=== PATIENT | female | born 1940 ===

== ENCOUNTER 2018-10-15 06:45 | Emergency (ER) | payer MEDICARE, MEDICAID ==
[2018-10-15 06:45] VITALS: BMI 25.6
[2018-10-15 07:08] VITALS: RESP 19
[2018-10-15] MEDS ORDERED: Alum-Mag Hydrox-Simethicone Susp (30 mL) PO STA (07:59)
[2018-10-15] MEDS ORDERED: Sodium Chloride 0.9% 1,000 ML IV STA (08:00)
[2018-10-15] MEDS ORDERED: Alum-Mag Hydrox-Simethicone Susp (30 mL) ONE (08:23)
--- NOTE | 2018-10-15 08:25 | ED PDOC ---
HPI: General Adult Time Seen by Provider: 10/15/18 07:49 Chief Complaint (Nursing): Abdominal Pain Chief Complaint (Provider): Chest Pain History Per: Patient, Family (daughter) History/Exam Limitations: no limitations Onset/Duration Of Symptoms: Days (x 3 weeks) Current Symptoms Are (Timing): Still Present Recently: Treated By A Physician Additional Complaint(s): 78 year old female with a history of Non-Hodgkin's lymphoma and diabetes presen ts to the ED with a burning sensation from her stomach to her throat for the last month. Patient received chemotherapy on September 22 and has since felt the pain. Also reports a mild headache as well as "aching bones". Daughter provides history and reports that the patient has been unable to eat regularly due to pain. She no longer takes medications for her diabetes since chemotherapy began. Patient takes Protonix, Zofran and Carafate without much relief. Denies vomiting, diarrhea and constipation. PMD: Dr. Randell Zapien Oncologist: Dr. Frye Past Medical History Reviewed: Historical Data, Nursing Documentation, Vital Signs Vital Signs: Last Vital Signs Temp 97.6 F 10/15/18 07:07 Pulse 94 H 10/15/18 07:07 Resp 19 10/15/18 07:07 BP 152/71 H 10/15/18 07:07 Pulse Ox 95 10/15/18 07:07 - Medical History PMH: Diabetes, Gastritis, Malignancy (Non-Hodgkin's lymphoma), Seizures (as a child) Denies: Chronic Kidney Disease - Surgical History Surgical History: Endoscopy, Tonsillectomy - Family History Family History: States: Unknown Family Hx - Home Medications Home Medications: Ambulatory Orders Medication Instructions Recorded Pantoprazole [Protonix] 40 mg PO DAILY 08/22/17 Sucralfate [Carafate] 1 gm PO BID 08/22/17 metFORMIN [glucOPHAGE] 500 mg PO DAILY 08/22/17 Aluminum Hydroxide/Magnesium H 30 ml PO TID #1000 ml 10/15/18 [Maalox 30 ml] Famotidine [Pepcid] 20 mg PO DAILY #14 tab 10/15/18 Lidocaine 2% Viscous 15 ml MM BID #100 bottle 10/15/18 - Allergies Allergies/Adverse Reactions: Allergies Allergy/AdvReac Type Severity Reaction Status Date / Time No Known Allergies Allergy Verified 09/03/18 08:09 Review of Systems ROS Statement: Except As Marked, All Systems Reviewed And Found Negative Constitutional: Negative for: Fever Respiratory: Negative for: Shortness of Breath Gastrointestinal: Positive for: Abdominal Pain (burning sensation from stomach up to throat). Negative for: Nausea, Vomiting, Diarrhea Neurological: Positive for: Headache (mild) Physical Exam - Reviewed Nursing Documentation Reviewed: Yes Vital Signs Reviewed: Yes - Physical Exam Appears: Positive for: Non-toxic, No Acute Distress Head Exam: Positive for: ATRAUMATIC, NORMAL INSPECTION, NORMOCEPHALIC Skin: Positive for: Normal Color, Warm, Dry. Negative for: Rash Eye Exam: Positive for: EOMI, Normal appearance, PERRL Neck: Positive for: Normal, Painless ROM, Supple Cardiovascular/Chest: Positive for: Regular Rate, Rhythm. Negative for: Murmur Respiratory: Positive for: Normal Breath Sounds. Negative for: Respiratory Distress Gastrointestinal/Abdominal: Positive for: Normal Exam, Soft. Negative for: Tenderness, Guarding, Rebound Extremity: Positive for: Normal ROM (upper and lower extremities). Negative for: Deformity, Swelling Neurologic/Psych: Positive for: Alert, Oriented (x 3). Negative for: Motor/Sens ory Deficits - Laboratory Results Result Diagrams: 10/15/18 08:10 10/15/18 08:10 - ECG O2 Sat by Pulse Oximetry: 95 (RA) Pulse Ox Interpretation: Normal - Progress Re-evaluation Time: 13:00 Condition: Re-examined, Improved Medical Decision Making Medical Decision Makin:59 Impression: burning sensation in chest Differential diagnoses include but are not limited to: GERD, less likely ACS; neuropathy, paresthesia Initial Plan: --CMP --CBC --EKG --Troponin --Urine dip --Lidocaine 2% Viscous 15 ml PO --Maalox 30 ml PO --NS IV --Pepcid 20 mg IVP Scribe Attestation: Documented by Yuli Childers acting as a scribe for Elsi Funes MD Provider Scribe Attestation: All medical record entries made by the Scribe were at my direction and personally dictated by me. I have reviewed the chart and agree that the record a ccurately reflects my personal performance of the history, physical exam, medical decision making, and the department course for this patient. I have also personally directed, reviewed, and agree with the discharge instructions and disposition. Disposition - Clinical Impression Clinical Impression: Abdominal pain, Chest pain - Patient ED Disposition Is Patient to be Admitted: No Doctor Will See Patient In The: Office Counseled Patient/Family Regarding: Studies Performed, Diagnosis, Need For Followup - Disposition Referrals: Randell Zapien MD [Staff Provider] - Disposition: Routine/Home Disposition Time: 13:28 Condition: GOOD Additional Instructions: BARRY ZARATE, thank you for letting us take care of you today. Your provider was Elsi Funes MD and you were treated for ABD PAIN. The emergency medical care you received today was directed at your acute symptoms. If you were prescribed any medication, please fill it and take as directed. It may take several days for your symptoms to resolve. Return to the Emergency Department if your symptoms worsen, do not improve, or if you have any other problems. Please contact your doctor or call one of the physicians/clinics you have been referred to that are listed on the Patient Visit Information form that is included in your discharge packet. Bring any paperwork you were given at discharge with you along with any medications you are taking to your follow up visit. Our treatment cannot replace ongoing medical care by a primary care provider outside of the emergency department. Thank you for allowing the [facility] team to be part of your care today. If you had an X-Ray or CT scan: A Radiologist will review the ED reading if any change in treatment is needed we will contact you. If you had a blood, urine, or wound culture: It will take several days for the results, if any change in treatment is needed we will contact you. If you had an STI test: It will take 48 hours for the results. Please call after 1 week if you have not heard back. Prescriptions: Aluminum Hydroxide/Magnesium H [Maalox 30 ml] 30 ml PO TID #1000 ml Famotidine [Pepcid] 20 mg PO DAILY #14 tab Lidocaine 2% Viscous 15 ml MM BID #100 bottle Instructions: Chest Pain Print Language: MOHAWK
[2018-10-15 08:33] LABS: ALB/GLOB RATIO 1.2 (1.0-2.1); ALT/SGPT 34 U/L (9-52); AST/SGOT 28 U/L (14-36); BLOOD UREA NITROGEN 19 mg/dl (7-17); CALCIUM 9.2 mg/dL (8.4-10.2); GFR NON-AFRICAN AMERICAN > 60
[2018-10-15 08:36] LABS: BASO % 0.5 % (0.0-2.0); EOS # 0.1 K/uL (0.0-0.7); EOS % 1.8 % (0.0-4.0); HEMOGLOBIN 13.9 g/dL (12.0-16.0); LYMPH # 0.5 K/uL (1.0-4.3); LYMPH % 8.5 % (20.0-40.0); MEAN CELL VOLUME 91.5 fl (81.0-99.0); MEAN CORPUSCULAR HEMOGLOBIN 30.3 pg (27.0-31.0); MEAN CORPUSCULAR HGB CONC 33.1 g/dL (33.0-37.0); MEAN PLATELET VOLUME 8.8 fl (7.2-11.7); MONO # 0.7 K/uL (0.0-0.8); MONO % 10.8 % (0.0-10.0); NEUT % 78.4 % (50.0-75.0); PLATELET COUNT 219 K/uL (130-400); RED CELL DISTRIBUTION WIDTH 13.2 % (11.5-14.5); WHITE BLOOD COUNT 6.4 K/uL (4.8-10.8)
[2018-10-15] MEDS ORDERED: Oxycodone/Acetaminophen 5/325 mg Tab PO STA (10:27)
[2018-10-15 12:45] LABS: BANDS 2 % (0-2); LYMPHOCYTE 8 % (20-50); METAMYELOCYTE 1 % (0-0); MONOCYTE 9 % (0-10); NEUTROPHIL 80 % (42-75); TOTAL CELLS COUNTED 100
[2018-10-15 12:46] LABS: PLATELET ESTIMATE NORMAL (NORMAL)
[2018-10-15 13:42] VITALS: BP 128/76; PULSE 79; O2SAT 98
[2018-10-15 13:44] VITALS: TEMP 97.8
--- NOTE | 2018-10-15 20:51 | CARD ---
APPROVED REPORT Date of service: 10/15/2018 EKG Measurement Heart [id number] <Conclusion> Normal sinus rhythm Possible Left atrial enlargement Borderline ECG
== END 2018-10-15 13:45 | disposition home or self-care (01) ==
LOC: H.ER 06:45
DX: R10.9 Unspecified abdominal pain (principal); R07.9 Chest pain, unspecified; E11.9 Type 2 diabetes mellitus without complications; Z79.84 Long term (current) use of oral hypoglycemic drugs; Z85.72 Personal history of non-Hodgkin lymphomas
CPT/HCPCS: 80053; 82948; 84484; 85025; 93005; 96374; 99283; J7030

== ENCOUNTER 2018-12-04 10:40 | Day surgery (SDC) | payer MEDICARE, MEDICAID ==
[2018-12-04 11:38] VITALS: BMI 17.4
[2018-12-04 11:40] VITALS: RESP 18
[2018-12-04] MEDS ORDERED: Lactated Ringer's 1,000 ML IV ONE (12:00)
[2018-12-04] MEDS ORDERED: Lidocaine 2% Inj (20ml) ONE (14:12)
[2018-12-04] MEDS ORDERED: Bupivacaine 0.5% Inj(30mL) ONE (14:12)
[2018-12-04] MEDS ORDERED: Iohexol 300 10 ML ONE (14:25)
[2018-12-04] MEDS ORDERED: Iohexol 300 100 ML IJ ONE (14:26)
[2018-12-04] MEDS ORDERED: Etomidate 20 mg/10ml Inj IV ONE (14:31)
[2018-12-04] MEDS ORDERED: Propofol 10 mg/ml Inj (20 ML) ONE (14:31)
[2018-12-04] MEDS ORDERED: Lactated Ringer's 1,000 ML IV SCH (15:30)
--- NOTE | 2018-12-04 15:42 | PCM.SURG1 ---
Surgeon's Initial Post Op Note - Surgeon's Notes Surgeon: Dr. Vuong Adjunct Professor: PGY2 Type of Anesthesia: General LMA Pre-Operative Diagnosis: Lymphoma Operative Findings: Right subclavian accessed w/ good blood return. Confirmed placement w/ C-Arm. for details see op note Post-Operative Diagnosis: as above Operation Performed: Right Subclavian Port-A-Cath placement Specimen/Specimens Removed: none Estimated Blood Loss: EBL {In ML}: 5 Drains Used: No Drains Post-Op Condition: Good Date of Surgery/Procedure: 12/04/18 Time of Surgery/Procedure: 15:38 (Dictation #: [id number])
--- NOTE | 2018-12-04 16:04 | RAD ---
Date of service: 12/04/2018 PROCEDURE: CHEST RADIOGRAPH, 1 VIEW HISTORY: s/p port-a-cath placement COMPARISON: 03/09/2018. FINDINGS: LUNGS: Clear. PLEURA: No pneumothorax or pleural fluid seen. CARDIOVASCULAR: No aortic atherosclerotic calcification present. No radiographic findings to suggest acute or significant cardiovascular disease. OSSEOUS STRUCTURES: No significant abnormalities. VISUALIZED UPPER ABDOMEN: Normal. OTHER FINDINGS: Venous access catheter in satisfactory position. IMPRESSION: Satisfactory position of recently placed venous access catheter. The tip is in the SVC. No pneumothorax.
[2018-12-04 17:47] VITALS: BP 130/69; PULSE 69; TEMP 97.7; O2SAT 100
--- NOTE | 2018-12-05 12:42 | OP ---
PROCEDURE DATE: 12/04/2018 SURGEON: Virginia Vuong MD TUNNEL HEADING INSPECTOR: Terell Howe DO, PGY-2 PREOPERATIVE DIAGNOSIS: Lymphoma. POSTOPERATIVE DIAGNOSIS: Lymphoma. PROCEDURES PERFORMED: 1. Right subclavian Port-A-Cath placement. 2. Confirmed by C-arm. TYPE OF ANESTHESIA: General LMA. ANESTHESIOLOGIST: Sadi Keller MD ESTIMATED BLOOD LOSS: 5 mL. INDICATIONS: This is a 78-year-old female, past medical history is significant for lymphoma. The patient has been undergoing two weeks of chemotherapy and has elected to have a chemo Port-A-Cath placement. The risks and benefits were explained to the patient and the patient agreed to the procedure set forth. DESCRIPTION OF PROCEDURE: The patient was brought into the operating room, placed in supine position with right arm tucked and right shoulder exposed. Anesthesia was induced and LMA was placed confirming good placement with good end-tidal CO2. At this time, a time-out was taken confirming correct patient, procedure, location, and all equipment. The patient was then turned to the left, exposing the right clavicle. The patient was prepped and draped in the usual sterile fashion using chlorhexidine. A 2% lidocaine with epinephrine was used to inject the site locally. With the patient in Trendelenburg position, utilizing the introducing needle, the right subclavian vein was appropriately cannulated with good flush and appropriate return. A guidewire was passed without difficulty and the needle was removed. Fluoroscopy confirmed satisfactory position of the guidewire in the right atrium. At this time, our attention was turned towards the fascia and skin. The skin, subcutaneous tissue, fascia, and the pec major muscle beneath was infiltrated with 2% lidocaine with epinephrine. An incision transverse using a #15 blade was used measuring approximately 6 cm. A subcutaneous pocket was created and appropriate hemostasis was achieved in this pocket using electrocautery. At this time, attention was turned back towards the guidewire. A #11 blade was used to incise the skin and a dilator and sheath was passed over the guidewire. The guidewire and dilator were removed and the sheath was carefully withdrawn. Fluoroscopy again confirmed satisfactory position. With a catheter under direct fluoroscopy was retracted into the superior vena cava. The catheter had been pre-flushed with dilute heparin solution, 100 units per mL. The port has also been pre-flushed with heparinized saline. The catheter was appropriately placed, once again confirmed with fluoroscopy and C-arm at approximate level of 15 cm. The locking cap had been placed on the catheter. The port was connected to the catheter and the locking cap was secured. The port was again flushed with heparinized saline and placed within the subcutaneous pocket. Fluoroscopy again confirmed satisfactory position. A hard copy of fluoroscopy was obtained. The catheter port was secured with 2-0 Prolene suture. The site was once again irrigated and appropriate hemostasis was achieved. The subcutaneous tissue was approximated. Prior to skin closure, once again confirmed appropriate withdrawal and flushing of the Port-A-Cath over skin. The skin was then closed and approximated with 4-0 Monocryl in a running subcuticular fashion. The site was then dressed with Steri-Strips and a sterile dressing of 4 x 4 and Tegaderm was placed on top. The patient was taken to the post-anesthesia care unit in stable condition. All counts were correct at the end of the case. Dr. Vuong was present and participated in all aspects of the case. While the patient in PACU, chest x-ray was obtained and confirmed good placement and no pneumothorax. Terell Howe DO Virginia Vuong MD
--- NOTE | 2018-12-05 15:46 | RAD ---
Date of service: 12/04/2018 PROCEDURE: Intraoperative fluoroscopy HISTORY: PORT COMPARISON: Not available TECHNIQUE: Intraoperative fluoroscopy was provided for life port insertion. Total time of fluoroscopy was 27.1 sec. Cumulative dose was 2.77 mGy. FINDINGS: A single fluoroscopic spot film is submitted. IMPRESSION: Fluoroscopy provided.
== END 2018-12-04 18:20 | disposition home or self-care (01) ==
LOC: H.OPSURG 10:40
PROVIDERS: ATTEND Specialist
DX: C82.90 Follicular lymphoma, unspecified, unspecified site (principal); E11.9 Type 2 diabetes mellitus without complications; K29.70 Gastritis, unspecified, without bleeding; Z45.2 Encounter for adjustment and management of vascular access device
CPT/HCPCS: 36561; 71045; 82948; C1751; J0690; J1644; J1885; J2001; J2704; J3010; J7040; J7120

== ENCOUNTER 2019-02-25 07:54 | Emergency (ER) | payer MEDICARE, MEDICAID ==
[2019-02-25 07:57] VITALS: BMI 23.9
[2019-02-25] MEDS ORDERED: Sodium Chloride 0.9% 1,000 ML IV STA (08:28)
--- NOTE | 2019-02-25 08:37 | ED PDOC ---
HPI: Abdomen Time Seen by Provider: 02/25/19 08:03 Chief Complaint (Nursing): GI Problem Chief Complaint (Provider): Abdominal pain History Per: Patient, Radiation Control Technician (Ricarda Puckett) History/Exam Limitations: no limitations Additional Complaint(s): Pt reports abdominal pain X 3 days, associated with nausea, constipation and decreased appetite. Symptoms started 4 days after last chemo session, has had similar sxs after chemo but not to this degree. Receives chemo q7 weeks. Denies fever, CP, SOB, symptoms. Past Medical History Reviewed: Nursing Documentation, Vital Signs Vital Signs: Last Vital Signs Temp 98.5 F 02/25/19 07:56 Pulse 103 H 02/25/19 07:56 Resp 17 02/25/19 07:56 BP 135/91 H 02/25/19 07:56 Pulse Ox 96 02/25/19 07:56 Primary Care Provider: Randell Zapien - Medical History PMH: Diabetes, Gastritis, Malignancy (Non-Hodgkin's lymphoma), Seizures (as a child) Denies: Chronic Kidney Disease - Surgical History Surgical History: Endoscopy, Tonsillectomy Other surgeries: Hysterectomy - Family History Family History: States: Unknown Family Hx - Living Arrangements Living Arrangements: With Friends/Others - Social History Current smoker - smoking cessation education provided: No Alcohol: None - Home Medications Home Medications: Ambulatory Orders Medication Instructions Recorded Pantoprazole [Protonix] 40 mg PO DAILY 08/22/17 metFORMIN [glucOPHAGE] 500 mg PO DAILY 08/22/17 Famotidine [Pepcid] 20 mg PO DAILY PRN 12/04/18 Gabapentin 300 mg PO TID PRN 12/04/18 Acetaminophen with Codeine 1 tab PO Q6H PRN #10 tab 02/25/19 [Tylenol with Codeine No. 3 300 mg-30 mg] Ondansetron ODT [Zofran ODT] 4 mg PO Q8H PRN #20 odt 02/25/19 - Allergies Allergies/Adverse Reactions: Allergies Allergy/AdvReac Type Severity Reaction Status Date / Time No Known Allergies Allergy Verified 02/25/19 08:03 Review of Systems Constitutional: Negative for: Fever, Chills Cardiovascular: Negative for: Chest Pain, Palpitations Respiratory: Negative for: Cough, Shortness of Breath Gastrointestinal: Positive for: Nausea, Abdominal Pain, Constipation. Negative for: Vomiting, Diarrhea Genitourinary Female: Negative for: Dysuria, Hematuria Skin: Negative for: Rash, Lesions Neurological: Negative for: Headache, Dizziness Physical Exam - Reviewed Nursing Documentation Reviewed: Yes Vital Signs Reviewed: Yes - Physical Exam Appears: Positive for: Well, No Acute Distress Head Exam: Positive for: ATRAUMATIC, NORMAL INSPECTION Skin: Positive for: Normal Color, Warm, Dry Eye Exam: Positive for: Normal appearance, EOMI, PERRL Cardiovascular/Chest: Positive for: Regular Rate, Rhythm Respiratory: Positive for: Normal Breath Sounds Gastrointestinal/Abdominal: Positive for: Bowel Sounds, Soft, Tenderness (Epigastric/RLQ). Negative for: Mass, Distended, Guarding, Rebound Back: Positive for: Normal Inspection. Negative for: L CVA Tenderness, R CVA Tenderness Extremity: Positive for: Normal ROM Neurological/Psych: Positive for: Awake, Alert, Oriented - Laboratory Results Result Diagrams: 02/25/19 08:40 02/25/19 08:40 - ECG O2 Sat by Pulse Oximetry: 96 Medical Decision Making Medical Decision Makin yo female with nausea, abdominal pain and constipation. - labs - EKG - CT abd/pelvis - Morphine - Zofran - IVF Disposition - Clinical Impression Clinical Impression: Lung nodule, Cholelithiasis - Disposition Referrals: Randell Zapien MD [Staff Provider] - Disposition: Routine/Home Disposition Time: 11:02 Condition: IMPROVED Prescriptions: Acetaminophen with Codeine [Tylenol with Codeine No. 3 300 mg-30 mg] 1 tab PO Q6H PRN #10 tab PRN Reason: Pain, Severe (8-10) Ondansetron ODT [Zofran ODT] 4 mg PO Q8H PRN #20 odt PRN Reason: Nausea/Vomiting Instructions: Gallstones, Opioids for Short-Term Treatment of Pain, Pulmonary Nodule Forms: [employer] (Divehi) Print Language: IRISH
[2019-02-25 08:51] LABS: BASO % 0.6 % (0.0-2.0); EOS # 0.1 K/uL (0.0-0.7); EOS % 4.1 % (0.0-4.0); LYMPH # 0.5 K/uL (1.0-4.3); LYMPH % 20.6 % (20.0-40.0); MEAN CELL VOLUME 89.6 fl (81.0-99.0); MEAN CORPUSCULAR HEMOGLOBIN 30.4 pg (27.0-31.0); MEAN CORPUSCULAR HGB CONC 33.9 g/dL (33.0-37.0); MEAN PLATELET VOLUME 9.1 fl (7.2-11.7); MONO # 0.1 K/uL (0.0-0.8); MONO % 3.9 % (0.0-10.0); NEUT # 1.6 K/uL (1.8-7.0); NEUT % 70.8 % (50.0-75.0); RBC 4.29 Mil/uL (3.80-5.20); RED CELL DISTRIBUTION WIDTH 12.9 % (11.5-14.5); WHITE BLOOD COUNT 2.2 K/uL (4.8-10.8)
[2019-02-25 08:59] LABS: ALB/GLOB RATIO 1.4 (1.0-2.1); ALBUMIN 4.3 g/dL (3.5-5.0); ALT/SGPT 22 U/L (9-52); AST/SGOT 30 U/L (14-36); BLOOD UREA NITROGEN 10 mg/dl (7-17); CALCIUM 9.7 mg/dL (8.4-10.2); GFR NON-AFRICAN AMERICAN > 60; LIPASE 73 U/L (23-300)
--- NOTE | 2019-02-25 09:10 | CARD ---
APPROVED REPORT Date of service: 02/25/2019 EKG Measurement Heart [id number] <Conclusion> Normal sinus rhythm Possible Left atrial enlargement Borderline ECG
[2019-02-25 09:16] LABS: PROTHROMBIN TIME 11.8 Seconds (9.8-13.1)
[2019-02-25 09:19] LABS: PARTIAL THROMBOPLASTIN TIME 20.6 Seconds (25.6-37.1)
[2019-02-25 09:36] LABS: URINE BILIRUBIN NEGATIVE (NEGATIVE); URINE BLOOD NEGATIVE (NEGATIVE); URINE CLARITY CLEAR (Clear); URINE COLOR STRAW (YELLOW); URINE GLUCOSE (UA) NEG (NEGATIVE); URINE LEUKOCYTE ESTERASE NEG Leu/uL (Negative); URINE PROTEIN NEGATIVE (NEGATIVE); URINE UROBILINOGEN 0.2-1.0 mg/dL (0.2-1.0)
[2019-02-25] MEDS ORDERED: Sodium Chloride 0.9% 50 ML IV ONE (10:00)
[2019-02-25] MEDS ORDERED: Iohexol 300 100 ML IJ ONE (10:00)
--- NOTE | 2019-02-25 10:50 | CT ---
Date of service: 02/25/2019 PROCEDURE: CT Abdomen and Pelvis with contrast HISTORY: Abd pain, nausea, constipation COMPARISON: None. TECHNIQUE: Following the intravenous administration of iodinated contrast material, a CT examination of the abdomen and pelvis was performed from the domes of the diaphragms to the symphysis pubis with reformatted datasets provided in axial, sagittal and coronal planes. Oral contrast was not administered as per referring physician request. Contrast dose: Omnipaque 300, 95 cc Radiation dose: Total exam DLP = 371.59 mGy-cm. This CT exam was performed using one or more of the following dose reduction techniques: Automated exposure control, adjustment of the mA and/or kV according to patient size, and/or use of iterative reconstruction technique. FINDINGS: LOWER THORAX: Faint subpleural nodule question of the right lower lobe base 6.5 mm greatest dimension. No pleural or pericardial effusion or infiltrate. LIVER: Diminished hepatic attenuation is appreciate diffusely, compatible with hepatic steatosis. No mass or intrahepatic biliary dilatation identified. GALLBLADDER AND BILE DUCTS: Cholelithiasis and a sludge or medical calcium layering the dependent portion with the gallbladder otherwise unremarkable appearing. PANCREAS: Unremarkable. No gross lesion or ductal dilatation. SPLEEN: Unremarkable. ADRENALS: Unremarkable. No mass. KIDNEYS AND URETERS: Unremarkable. No hydronephrosis. No solid mass. VASCULATURE: Nonaneurysmal abdominal aortic calcific atherosclerotic changes are identified. BOWEL: Stomach is collapsed and is poorly evaluated as result. There is a [id number] amount of retained fecal material at the ascending colon with minimal amount otherwise throughout the remainder. Gas mildly distending various large-bowel segments. No small or large bowel obstruction. No gross mural thickening. APPENDIX: Normal appendix. PERITONEUM: Unremarkable. No free fluid. No free air. LYMPH NODES: Unremarkable. No enlarged lymph nodes. BLADDER: Unremarkable. REPRODUCTIVE: 1.6 cm left adnexal cyst. Prior hysterectomy evident. BONES: Limited dextroscoliotic thoracolumbar spinal deformity identified. OTHER FINDINGS: None. IMPRESSION: 1. No bowel obstruction, measure edema, ascites or free intrarenal gas. The stomach is collapsed. Limited retained fecal material is seen at the ascending colon with remainder of the colon otherwise partially distended with gas. 2. Cholelithiasis within under once unremarkable appearing gallbladder. 3. Hepatic steatosis. 4. Prior hysterectomy evident. 1.6 cm left adnexal cyst evident. 5. Incidental 6.5 mm subpleural nodule right lower lobe base abutting the right hemidiaphragm.
[2019-02-25 11:47] VITALS: RESP 18
[2019-02-25 12:48] VITALS: BP 146/74; PULSE 75; TEMP 98.4
[2019-02-26 21:38] VITALS: O2SAT 96
== END 2019-02-25 12:46 | disposition home or self-care (01) ==
LOC: H.ER 07:54
DX: R91.1 Solitary pulmonary nodule (principal); K80.20 Calculus of gallbladder without cholecystitis without obstruction; Z79.84 Long term (current) use of oral hypoglycemic drugs; Z90.710 Acquired absence of both cervix and uterus; E11.9 Type 2 diabetes mellitus without complications; Z79.899 Other long term (current) drug therapy
CPT/HCPCS: 74177; 80053; 81003; 82948; 83690; 85025; 85610; 85730; 93005; 96360; 96361; 99285; J2270; J2405; J7030; Q9967